=== PATIENT | female | born 1985 | race Caucasian/White ===

== ENCOUNTER 2023-09-20 11:16 | Emergency (ER) | payer OTHER ==
[2023-09-20 11:36] VITALS: BP 127/68; PULSE 79; RESP 18; TEMP 98.3; BMI 25.6
[2023-09-20] MEDS ORDERED: LIDOCAINE 4% PATCH TP ONE (12:20)
[2023-09-20] MEDS ORDERED: METHOCARBAMOL 500 MG TABLET ONE (12:20)
[2023-09-20] MEDS ORDERED: ACETAMINOPHEN 500 MG TABLET (FP) ONE (12:20)
[2023-09-20] MEDS ORDERED: KETOROLAC TROMETHAMINE 30 MG/1 ML VIAL ONE (12:20)
[2023-09-20] MEDS: METHOCARBAMOL 500 MG TABLET PO ONE (12:25)
[2023-09-20] MEDS: KETOROLAC TROMETHAMINE 30 MG/1 ML VIAL IM ONE (12:25)
[2023-09-20] MEDS: ACETAMINOPHEN 500 MG TABLET (FP) PO ONE (12:25)
[2023-09-20] MEDS: LIDOCAINE 4% PATCH TP ONE (12:25)
[2023-09-20] MEDS ORDERED: LIDOCAINE PATCH REMOVAL MC ONE (22:00)
== END 2023-09-20 14:10 | disposition home or self-care (01) ==
LOC: JERFT 11:16
PROC: 3E0233Z Introduction of Anti-inflammatory into Muscle, Percutaneous Approach (ICD-10-PCS; principal; 2023-09-20)
DX: M54.50 Low back pain, unspecified (principal); M25.552 Pain in left hip; W10.9XXA Fall (on) (from) unspecified stairs and steps, initial encounter
CPT/HCPCS: 72100-TC-FY; 73502-TC-LT-FY; 99284-25